=== PATIENT | female | born 1955 | race African-American/Black ===

== ENCOUNTER 2024-10-08 14:22 | Outpatient (AMB) | payer OTHER, SELFPAY ==
--- NOTE | 2024-10-08 14:30 | A.OFFVIS_ITS ---
Vital Signs 10/08/24 14:38 Height 5 ft 3 in Weight 136 lb BMI 24.1 BP 140/78 H Blood Pressure Location Rt brachial Position Sitting Intake Visit Reasons: ENP-Memory loss Intake Note: Patient presents for memory loss Allergies aspirin Allergy (Severe, Verified 10/08/24 14:34) Nausea and Vomiting atorvastatin Allergy (Severe, Verified 10/08/24 14:34) Rash lisinopril Allergy (Severe, Verified 10/08/24 14:34) Cough dulaglutide [From Trulicity] Allergy (Unknown, Verified 10/08/24 14:34) Unknown Medication List - Last Reconciled 10/08/24 by Yudith Prieto MD aspirin 81 mg PO DAILY ezetimibe 10 mg PO DAILY lancets (Corelyticsuch UltraSoft 2 Lancet) As directed metoprolol succinate ER 50 mg PO DAILY trazodone 50 mg PO BEDTIME valsartan 160 mg PO DAILY HPI Comments Details: 69y/o Right handed female comes for evaluation of memory issues. She is accompanied by her daughter who helps with history. She retired 1 year ago and has noticed cognitive issues since then. She used to work as lunch lady at school. She has short term memory issues, trouble remembering her age, forgets how many grand children she has, frequently repeats questions, stories,has trouble remembering appointments etc. she was born in [place] and moved to [facility] in [place] but did not learn upper sorbian . she got a GED. No known family h/o dementia she has depression - was hospitalized as she presented with cognitive issues, dehydration, not eating , weight loss etc. [facility] Medical History HTN (hypertension) Type 2 diabetes mellitus Optic disc drusen Breast CA Varicose vein of leg Tubular adenoma Hypercholesteremia CAD (coronary artery disease) Osteopenia Depressive disorder Skin mole Constipation Surgical History H/O lumpectomy Hx of colonoscopy H/O tubal ligation H/O breast biopsy Family History Mother HTN (hypertension) Sister HTN (hypertension) Brother HTN (hypertension) Son Bipolar 1 disorder Social History Alcohol intake: never Patient Tobacco Use Status: Never used Tobacco Physical Exam Vital Signs: Last Vital Signs BP 140/78 H 10/08/24 14:38 BMI result Body Mass Index 24.1 Eyes Pupils: Equal, round and reactive pupils present Neuro General: gait normal, tone normal, moves all extremities and no focal motor deficits Cranial nerves: Yes CN's II-XII intact bilaterally, Yes Facial sensation intact/muscles of mastication intact, Yes Equal, round and reactive pupils present, Yes Bilaterally intact EOM present, Yes Nystagmus not present, Yes Normal facial strength present, Yes Midline tongue present, Yes Symmetric palate elevation present and Yes Ability to bilaterally elevate shoulders present Cognition (Neuro): normal cognition Gait exam (Neuro): Normal gait present Motor exam (neuro): 5/5 motor strength present throughout and Normal motor muscle tone present throughout Deep tendon reflexes (DTR's): Right triceps reflex intensity grade: 1+, Left triceps reflex intensity grade: 1+, Rt Biceps (C5, C6): 1+, Left biceps reflex intensity grade: 1+, Right brachioradialis reflex intensity grade: 1+, Left brachioradialis reflex intensity grade: 1+, Right patellar reflex intensity grade: 1+ and Left patellar reflex intensity grade: 1+ Coordination: [id number] test normal Orientation What is the (year) (season) (date) (day) (month)?: year and day Where are we (state) (county) (town or city) (hospital) (floor)?: state, county, town or city, hospital/clinic and floor Registration Name of 3 unrelated objects clearly and slowly, then ask patient to repeat all 3 of them. (1st repeat determines score. Make sure they can repeat all three): object 1, object 2 and object 3 Attention & Calculation (CHOOSE ONE) Spell WORLD backwards (DLROW): 5 letters Language Show patient a wristwatch & ask what it is. Repeat for pencil.: watch and pencil Ask the patient to repeat the phrase 'No ifs, ands, or buts' after you.: correct Ask the patient to 'take a piece of paper with their right hand' 'fold paper in half' 'place paper on floor': take paper in right hand, fold paper in half and place paper on floor Print the sentence 'CLOSE YOUR EYES' on a piece. If patient actually closes eyes then score.: followed written direction Give patient a blank piece of paper & ask to write a sentence. Score if it contains a noun & verb.: sentence contains subject and verb Ask patient to copy figure of intersecting pentagons exactly. Score if all 10 angles & 2 intersects are included.: all 10 angles present & 2 are intersected Score Score: 24 Assessment & Plan Assessment & Plan (1) Mild cognitive impairment: Comment: ? mood related vs Alzheimers vs vascular Code(s): G3 - Mild cognitive impairment of uncertain or unknown etiology Category: Medical Plan PET scan to evaluate MRI report from [place] - reviewed - shows nonspecific white matter changes I will check her B12 FILIPPO ESR TSH will consider adding memantine or donepezil Orders: Orders Erythrocyte Sedimentation Rate Today G3 - Mild cognitive impairment of uncertain or unknown etiology Complete Blood Count Auto Diff Today G3 - Mild cognitive impairment of uncertain or unknown etiology PET Brain beta amyloid Today G3 - Mild cognitive impairment of uncertain or unknown etiology TSH reflex Free T4 Today G3 - Mild cognitive impairment of uncertain or unknown etiology Vitamin B12 and Folate Today G3 - Mild cognitive impairment of uncertain or unknown etiology Vitamin D 25-OH (D2 and D3) Today G3 - Mild cognitive impairment of uncertain or unknown etiology Comprehensive Met. Panel Today G3 - Mild cognitive impairment of uncertain or unknown etiology FILIPPO Reflex Titer and Pattern Today G3 - Mild cognitive impairment of uncert ain or unknown etiology Coding Level of Care Code New Pt Level 4 (63968) Diagnoses Mild cognitive impairment
[2024-10-08 14:38] VITALS: BP 140/78; BMI 24.1
== END 2024-10-08 15:14 | disposition home or self-care (01) ==
PROVIDERS: PCP Family Medicine; Visit Provider Psychiatry & Neurology Neurology
DX: G31.84 Mild cognitive impairment of uncertain or unknown etiology (principal)
CPT/HCPCS: 99204

== ENCOUNTER → 2024-10-08 14:22 | Outpatient (BNVA) | payer OTHER, SELFPAY | PROVIDERS: PCP Family Medicine; Visit Provider Psychiatry & Neurology Neurology | DX: G31.84 Mild cognitive impairment of uncertain or unknown etiology (principal) | CPT/HCPCS: 99202 ==